=== PATIENT | female | born 1980 | race Caucasian/White ===

== ENCOUNTER 2018-11-13 21:29 | Outpatient (CLI) | payer OTHER ==
[~2018-11-13 21:29] MED LIST: IBU800 M1 PO; MOTRIN 600600 MG/TAB PO; MOTRIN 800800 MG/TAB PO; PERCOCET 325 MG1 TA2 PO; PRENATAL1 TA1
--- NOTE | 2018-11-13 21:40 | NUR ---
PT ARRIVED TO UNIT WITH COMPLAINTS OF LEFT SIDED HIP AND BACK PAIN, N/V. ORIENTED TO ROOM, CHANGED INTO GOWN, VS OBTAINED, SVE PERFORMED, EFMX2 APPLIED.
[2018-11-13 22:30] VITALS: BP 128/70; PULSE 106; TEMP 98.6
--- NOTE | 2018-11-14 00:04 | NUR ---
0000- DR. ZAVALA NOTIFIED OF LAB RESULTS, REASSURING FHT, IRREGULAR CONTRACTIONS BUT PT HAS BEEN SLEEPING THROUGH THESE CONTRACTIONS, STATES NAUSEA HAS IMPROVED FOLLOWING [facility], HIP AND BACK PAIN ALSO IMPROVED. DISCHARGE ORDER RECEIVED. DR. ZAVALA TO CALL PRESCRIPTION IN TO PT'S RX FOR MACROBID 100MG BID, GIVE FIRST DOSE PRIOR TO DISCHARGE. HAVE CULTURE ADDED TO URINE SAMPLE PER . 0004- MONITORING DC'D. PT TO CHANGE INTO STREET CLOTHES, QUESTIONS ENCOURAGED AND ANSWERED. 0040- 100MG MACROBID GIVEN PO. 0045- DISCHARGE INSTRUCTIONS REVIEWED WITH PT AND SPOUSE. WILL TOUR DRIVER PRESCRIPTION FOR MACROBID 100MG BID. LEFT THE UNIT AMBULATORY WITH SPOUSE FOR HOME.
[2018-11-14 13:25] LABS: COLLECTION METHOD CLEAN CATCH; MUCOUS Present /lpf; PH 6 (5-8); URINE APPEARANCE Cloudy; URINE BACTERIA Rare /hpf; URINE BILIRUBIN Negative (NEGATIVE); URINE BLOOD 2+ (NEGATIVE); URINE COLOR Yellow; URINE GLUCOSE Negative (NEGATIVE); URINE KETONE 2+ (NEGATIVE); URINE LEUKOCYTE ESTERASE 3+ (NEGATIVE); URINE NITRATE Negative (NEGATIVE); URINE PROTEIN(semi-quant) 1+ (NEGATIVE); URINE UROBILINOGEN Negative (NEGATIVE)
[2018-11-15] MEDS ORDERED: MACRODANTIN100 PO (22:49)
[2018-11-15] MEDS ORDERED: AZO-STANDARD95 MG PO (22:50)
== END 2018-11-14 00:45 | disposition home or self-care (01) ==
LOC: LDRO 21:29
PROVIDERS: Obstetrics & Gynecology
DX: O99.89 Other specified diseases and conditions complicating pregnancy, childbirth and the puerperium (principal); M25.552 Pain in left hip; M54.9 Dorsalgia, unspecified; R11.2 Nausea with vomiting, unspecified; R42 Dizziness and giddiness; Z3A.34 34 weeks gestation of pregnancy

== ENCOUNTER 2018-11-15 22:32 | Inpatient (IN) | payer OTHER ==
[~2018-11-15] VITALS: Ht 10.2 cm; Wt 87.7 kg
[2018-11-15] MEDS ORDERED: MACRODANTIN100 PO (22:49)
[2018-11-15] MEDS ORDERED: AZO-STANDARD95 MG PO (22:50)
[2018-11-15 23:16] LABS: COLLECTION METHOD CLEAN CATCH
[2018-11-15 23:21] LABS: HEMOGLOBIN 11.5 g/dl (12.5-16.0); MEAN CELL VOLUME 89 fl (80.0-100.0); MEAN CORPUSCULAR HEMOGLOBIN 30 pg (27.0-31.0); MEAN CORPUSCULAR HGB CONC 34 g/dl (33.0-37.0); MEAN PLATELET VOLUME 10.4 fl (7.4-10.4); PLATELET COUNT 111 K/mm3 (130-400); RED BLOOD COUNT 3.83 M/mm3 (4.10-5.30); REDCELL DISTRIBUTION WIDTH-CV 13.1 % (11.5-14.5)
[2018-11-15 23:25] LABS: HEMATOCRIT 34.2 % (37.0-47.0)
--- NOTE | 2018-11-15 23:30 | NUR ---
THIS NURSE IN ROOM AT 2305. ER STAFF STARTING IV. FM STARTED AT 2312 AND DC'D AT 2330. FHT REACTIVE, NO CONTRACTIONS NOTED.
[2018-11-15 23:31] LABS: ALBUMIN 3.2 gm/dL (3.5-5.0); BILIRUBIN,TOTAL 0.8 mg/dL (0.0-1.0); CALCIUM 9.9 mg/dL (8.4-10.2); CREATININE, serum 0.85 (0.52-1.25); POTASSIUM 3.8 mmol/L (3.4-5.0); TOTAL PROTEIN 6.6 gm/dL (6.4-8.2)
[2018-11-15 23:35] LABS: AMORPHOUS CRYSTAL Present /uL; MUCOUS Present /lpf; PH 6 (5-8); URINE APPEARANCE Cloudy; URINE BACTERIA Many /hpf; URINE BILIRUBIN Negative (NEGATIVE); URINE BLOOD 3+ (NEGATIVE); URINE COLOR Amber; URINE GLUCOSE Negative (NEGATIVE); URINE KETONE 1+ (NEGATIVE); URINE LEUKOCYTE ESTERASE 2+ (NEGATIVE); URINE NITRATE Positive (NEGATIVE); URINE PROTEIN(semi-quant) 2+ (NEGATIVE); URINE UROBILINOGEN >=4.0 mg/dL (NEGATIVE)
[2018-11-15 23:58] LABS: BAND 40 % (0-10); LYMPHOCYTE 2 % (20.0-51.0); NEUTROPHILS 56 % (42.0-75.2)
[2018-11-15 23:59] LABS: PLATELET ESTIMATE DECREASED (NORMAL)
[2018-11-16] VITALS (9 sets, daily range): BP systolic 101–131; BP diastolic 47–99; PULSE 105–127; TEMP 98.3–100.3
[2018-11-16 00:06] LABS: DOHLE BODIES PRESENT; TOXIC GRANULATION PRESENT
[2018-11-16 00:07] LABS: HYPOCHROMIA 1+
--- NOTE | 2018-11-16 05:00 | NUR ---
0500 C/O BACK PAIN. TYLENOL 325 AND PERCOCET 1 PO GIVEN FOR PAIN. WARM BLANKET TO BACK. TRYING TO REST.
[2018-11-16 08:00] LABS: HEMOGLOBIN 10.1 g/dl (12.5-16.0); MEAN CELL VOLUME 91 fl (80.0-100.0); MEAN CORPUSCULAR HEMOGLOBIN 30 pg (27.0-31.0); MEAN CORPUSCULAR HGB CONC 33 g/dl (33.0-37.0); PLATELET COUNT 93 K/mm3 (130-400); RED BLOOD COUNT 3.35 M/mm3 (4.10-5.30); REDCELL DISTRIBUTION WIDTH-CV 13.3 % (11.5-14.5)
[2018-11-16 08:02] LABS: HEMATOCRIT 30.5 % (37.0-47.0)
[2018-11-16] MEDS ORDERED: AMOXICILLIN/CLA1 TA1 PO (09:02)
[2018-11-16] MEDS ORDERED: PERCOCET 325 MG1 TA2 PO (09:02)
[2018-11-16 09:50] LABS: BAND 27 % (0-10); DOHLE BODIES PRESENT; EOSINOPHIL 1 % (0-4); LYMPHOCYTE 9 % (20.0-51.0); NEUTROPHILS 62 % (42.0-75.2); PLATELET ESTIMATE DECREASED (NORMAL); POLYCHROMASIA 1+
--- NOTE | 2018-11-16 15:47 | NUR ---
RN at bedside. O2 applied via nasal cannulla at 2L. SPO2 noted at 94%. 1549-O2 increased to 2L. SPO2 noted 96%
--- NOTE | 2018-11-16 17:00 | NUR ---
RN at bedside. SPO2 100%. Pt taken off O2. SPO2 remains 98-100%. Pt remains on RA.
[2018-11-17] VITALS (8 sets, daily range): BP systolic 103–123; BP diastolic 52–81; PULSE 91–121; TEMP 97.7–100.8
--- NOTE | 2018-11-17 09:10 | NUR ---
2408-9877 FHR baseline 110 bpm with moderate variability and accelerations, no decelerations noted. 4879-7333 FHR baseline 100 bpm with moderate variability and accelerations, no decelerations noted. O2 sat placed on patient and maternal HR 90-100 bpm and is not the same as FHR. 0910 Dr. Villalobos on unit, reviews FHR tracing, orders to continue FHR monitoring.
--- NOTE | 2018-11-17 10:15 | NUR ---
FHR 110 bpm with moderate variability and accelerations, no decelerations noted. Dr. Villalobos at bedside, reviews FHR tracing, orders to discontinue FHR monitoring and continue monitoring FHR q shift as ordered.
[2018-11-17 11:09] LABS: HEMATOCRIT 38.4 % (37.0-47.0); MEAN CELL VOLUME 89 fl (80.0-100.0); MEAN CORPUSCULAR HEMOGLOBIN 30 pg (27.0-31.0); MEAN CORPUSCULAR HGB CONC 34 g/dl (33.0-37.0); MEAN PLATELET VOLUME 10.6 fl (7.4-10.4); PLATELET COUNT 141 K/mm3 (130-400); REDCELL DISTRIBUTION WIDTH-CV 13.3 % (11.5-14.5)
[2018-11-17 11:15] LABS: HEMOGLOBIN 12.9 g/dl (12.5-16.0)
--- NOTE | 2018-11-17 12:25 | NUR ---
Chaplain arroyo and offered support with patient.
--- NOTE | 2018-11-17 18:00 | NUR ---
Patient c/o seeing "black and white dots and black squiggly lines" in and above her field of vision. She states that this usually happens before an MS episode. She states that she has previously preferred lifestyle changes to medication for treatment of her MS. Dr. Villalobos notified of visual changes, no new orders.
--- NOTE | 2018-11-17 21:15 | NUR ---
Pt reports "I still have a headache but I'll wait to take percocet until I've had a shower and am ready for bed"
[2018-11-18 03:00] VITALS: BP 107/56; PULSE 82; TEMP 98.4
[2018-11-18 08:45] VITALS: BP 113/77; PULSE 105; TEMP 98.3
[2018-11-18] MEDS ORDERED: AMOXICILLIN/CLA1 TA1 PO (09:00)
[2018-11-18] MEDS ORDERED: BACTRIM 400 MG-1 TAB PO (09:00)
[2018-11-18 12:30] VITALS: BP 121/73; PULSE 100; TEMP 98.2
== END 2018-11-18 16:20 | disposition home or self-care (01) | DRG 833 ==
LOC: COL.ER 22:32 → OB 11-16 00:38
PROVIDERS: Emergency Medicine; Obstetrics & Gynecology; ADMIT Obstetrics & Gynecology
DX: O23.43 Unspecified infection of urinary tract in pregnancy, third trimester (principal); E86.0 Dehydration; O99.283 Endocrine, nutritional and metabolic diseases complicating pregnancy, third trimester; O23.03 Infections of kidney in pregnancy, third trimester; Z3A.34 34 weeks gestation of pregnancy
CPT/HCPCS: A4216; J0696; J2405; J3010; J7030; J7120

== ENCOUNTER 2018-12-17 19:38 | Outpatient (CLI) | payer OTHER ==
[~2018-12-17] VITALS: Ht 165.1 cm; Wt 86.4 kg
--- NOTE | 2018-12-17 19:30 | NUR ---
1929- Pt arrived on unit with complaints of contractions on and off all day. Pt was escorted by her and staff to LR 6. Pt denies any leaking of fluid, vaginal bleeding and reports normal movement. EFM and toco monitors placed. Vital signs WNL. SVE by this RN . 1939- Dr. Martinez on the unit. FHR tracing, ctx pattern and SVE reviewed. Orders for labor assessment received.
[~2018-12-17 19:38] MED LIST changes: +AMOXICILLIN/CLA1 TA1 PO; +AZO-STANDARD95 MG PO; +BACTRIM 400 MG-1 TAB PO; +MACRODANTIN100 PO
[2018-12-17 20:00] VITALS: BP 126/66; PULSE 85
--- NOTE | 2018-12-17 20:45 | NUR ---
2044- SVE by this RN with no change. Information reviewed with Dr. Martinez. Orders for discharge home received. 2099- Discharge instructions reviewed with pt and at the bedside. Both verbalized an understanding, agreed with the plan and states no questions or concerns at this time. 2114- Pt discharged home.
== END 2018-12-17 21:15 | disposition home or self-care (01) ==
LOC: LDRO 19:38 → LDR 20:14 → LDRO 21:15 → LDR 21:15
DX: O09.523 Supervision of elderly multigravida, third trimester (principal); Z3A.39 39 weeks gestation of pregnancy
CPT/HCPCS: OP

== ENCOUNTER 2018-12-18 17:42 | Inpatient (IN) | payer OTHER ==
[~2018-12-18] VITALS: Ht 165.1 cm; Wt 87.3 kg
[2018-12-18] VITALS (10 sets, daily range): BP systolic 127–154; BP diastolic 60–82; PULSE 77–106; TEMP 98.1–98.6
--- NOTE | 2018-12-18 17:50 | NUR ---
Patient ambulatory onto unit with and sleeper cutter at side for labor check. Patient reports painful contractions since 1400 today. Reports good movement, denies leaking of fluid or vaginal bleeding. , 39.2. GBS-. . EFMs on, VS taken. SVE per Kar LEIJA. notified, orders received. INT started in left forearm at 1805. Admission assessment completed. Consents signed.
--- NOTE | 2018-12-18 18:15 | NUR ---
Report to Piyush RN to assume care of patient at this time.
--- NOTE | 2018-12-18 18:40 | NUR ---
4064-0195 Pt kneeling on floor leaning over birthing ball. Tracing maternal HR at this time verified by palpitation. RN at bedside adjusting monitor.
[2018-12-18 18:44] LABS: BASO % 0.2 % (0.0-2.0); EOS # 0.1 (0.0-0.7); EOS % 0.5 % (0-4.0); GRAN # 8.4 (1.4-6.5); GRAN % 76.4 % (42.2-75.2); HEMOGLOBIN 12.2 g/dl (12.5-16.0); LYMPH # 1.9 (1.2-3.4); LYMPH % 17.7 % (20.0-51.0); MEAN CELL VOLUME 89 fl (80.0-100.0); MEAN CORPUSCULAR HEMOGLOBIN 30 pg (27.0-31.0); MEAN CORPUSCULAR HGB CONC 34 g/dl (33.0-37.0); MEAN PLATELET VOLUME 10.3 fl (7.4-10.4); MONO # 0.5 (0.1-0.6); MONO % 4.7 % (1.7-9.3); PLATELET COUNT 207 K/mm3 (130-400); RED BLOOD COUNT 4.03 M/mm3 (4.10-5.30); REDCELL DISTRIBUTION WIDTH-CV 13.9 % (11.5-14.5)
[2018-12-18 18:45] LABS: HEMATOCRIT 35.7 % (37.0-47.0)
--- NOTE | 2018-12-18 19:00 | NUR ---
Monitors removed, pt up to bathroom to void. 1845 - 1900 Pt on knees leaning over birthing ball, difficulty tracing FHR due to maternal position. Maternal HR tracing verified by palpitation. RN adjusting US.
--- NOTE | 2018-12-18 19:15 | NUR ---
3449-7036 Pt kneeling and leaning over birthing ball. Difficulty tracing FHR due to maternal positioning. Maternal HR tracing verified by palpitation. RN adjusting monitor.
--- NOTE | 2018-12-18 20:00 | NUR ---
3003-9830 Pt sitting up in bed. Tracing maternal HR, verified by palpitation. Dr. Alba at bedside checking on patient, continue plan of care.
--- NOTE | 2018-12-18 20:10 | NUR ---
2010 - Nissa comes to nurses station and states patient is feeling much more pressure. Dr. Alba to bedside. 2015 - Pt positioned to kneeling and leaning over elevated head of bed for comfort. Dr. Alba gowned and gloved.
--- NOTE | 2018-12-18 20:30 | NUR ---
Pt reports feeling a lot of pressure but not an urge to push. Discussed performing AROM with patient and spouse, both agreeable at this time. AROM performed by Dr. Alba, small amount of clear/yellow fluid returned. SVE 9/100/0. Pt breathing through contractions well.
--- NOTE | 2018-12-18 21:00 | NUR ---
2935-8023 Maternal HR tracing frequently due to maternal positioning. RN handholding monitors intermittently to obtain FHR. Pt complaining of strong pain in her legs, repositioned to footplates for comfort. Pt breathing and coping well through contractions.
--- NOTE | 2018-12-18 21:13 | NUR ---
2099 - Nursery at bedside. SVE /+[address] Alba. Recommended to patient to push with contractions to help pain in her legs. RN handholding US intermittently to obtain FHR. Difficulty tracing continously due to maternal position and maternal comfort. 2112 - Spontaneous vaginal delivery of boy. Delayed cord clamping per parents request. Cord clamped by Dr. Alba after pulsating had stopped. Cord cut by FOB. then placed on mothers abdomen. Care of assumed to Nursery RN, Cassy Cruz. 2122 - Spontaneous delivery of intact placenta. Perineum intact per Dr. Alba. Fundal massage started by this RN, fundus firm and down 1 from umbilicus. No pitocin per patients request, ok'd by Dr. Alba. Recommended to patient to breastfeed infant soon after delivery. 2129 - Pericare provided. New chux beneath patient. Ice pack to perineum. Pt repositioned in bed. recovery started.
--- NOTE | 2018-12-18 23:30 | NUR ---
Pt able to ambulate to bathroom with standby assistance. Unable to void at this time. Pericare explained and provided. New gown on. Mesh panties and pad applied. Pt educated on need to measure 3 voids. Pt transferred to room 214 by wheelchair.
--- NOTE | 2018-12-18 23:40 | NUR ---
at 40 weeks and 1 day arrives to unit with complaint of leakage of fluid. Pt reports large gush of clear fluid around 2215 tonight. Pt reports feeling some mild contractions about every 10 minutes apart. Pt denies vaginal bleeding and feels good movement. Pt denies headaches, blurry vision, or RUQ pain. Pt oriented to room, call light within reach, bed in low and locked position. EFM and toco explained and applied. AMNITRACE POSITIVE. SVE -2/-3. Dr. Villalobos notified, see physician notification.
--- NOTE | 2018-12-19 00:15 | NUR ---
18 gauge IV started in right forearm after 1 attempt. Admission labs obtained off of IV start. Lactated Ringers infusing to gravity. Consents reviewed and signed with patient and spouse. Pt educated on plan of care.
[2018-12-19 00:40] VITALS: BP 137/71; PULSE 90; TEMP 98.5
--- NOTE | 2018-12-19 02:35 | NUR ---
0200 - Pt requesting epidural. Trev Cisse CRNA notified. 0230 - BRAYAN Steele at bedside. Pt repositioned to sitting on edge of bed. Epidural procedure, risks, and benefits explained to patient, pt verbalized understanding. 0235 - Single shot by BRAYAN Steele, pt denies any adverse reactions. 0242 - Pt repositioned to wedge left. Safety precautions reviewed with patient and spouse. Plan of care reviewed. See Anesthesia record.
--- NOTE | 2018-12-19 03:22 | NUR ---
Martinez catheter placed to dependent drainage. Clear, yellow urine returned. Catheter secured to leg with statlock. SVE /-2. Peanut ball placed.
[2018-12-19 04:30] VITALS: BP 115/63; PULSE 85; TEMP 98.3
[2018-12-19 08:20] VITALS: BP 110/52; PULSE 78; TEMP 98.3
--- NOTE | 2018-12-19 09:54 | NUR ---
Initial visit; Parents thanked Highway Inspector for offering congratulations and God's blessings for the of their son. Highway Inspector thanked family for choosing [facility].
[2018-12-19 16:25] VITALS: BP 112/57; PULSE 88; TEMP 98
[2018-12-19 19:55] VITALS: BP 128/67; PULSE 80; TEMP 97.9
[2018-12-20] MEDS ORDERED: MOTRIN 800800 MG/TAB PO (07:05)
[2018-12-20] MEDS ORDERED: PERCOCET 325 MG1 TA2 PO (07:06)
[2018-12-20 08:00] VITALS: BP 125/65; PULSE 87; TEMP 97.7
== END 2018-12-20 15:00 | disposition home or self-care (01) | DRG 807 ==
LOC: LDRO 17:42 → LDR 17:50 → OB 17:50
PROVIDERS: ADMIT Obstetrics & Gynecology
PROC: 10E0XZZ Delivery of Products of Conception, External Approach (ICD-10-PCS; principal; 2018-12-18)
DX: O34.211 Maternal care for low transverse scar from previous cesarean delivery (principal); Z37.0 Single live birth; Z3A.39 39 weeks gestation of pregnancy

== ENCOUNTER 2020-05-17 18:15 | Observation (INO) | payer OTHER ==
[2020-05-17 19:39] LABS: ALBUMIN 4.4 gm/dL (3.5-5.0); BILIRUBIN,TOTAL 0.2 mg/dL (0.0-1.0); CALCIUM 9.5 mg/dL (8.4-10.2); CREATININE, serum 0.66 (0.52-1.25); TOTAL PROTEIN 7.4 gm/dL (6.4-8.2)
--- NOTE | 2020-05-17 20:45 | NUR ---
Pt transferred into OR from ED cart by this RN. Pt able to move self onto OR table. Trev Cisse CRNA and network control technician in OR. Pt positioned into lithotomy. Dr. Stevens to OR, scrub done by Dr. Stevens. See operative notes.
[2020-05-17 20:53] LABS: BASO % 0.3 % (0.0-2.0); EOS # 0.1 (0.0-0.7); EOS % 0.9 % (0-4.0); GRAN # 10.9 (1.4-6.5); HEMOGLOBIN 12.4 g/dl (12.5-16.0); LYMPH # 2.1 (1.2-3.4); LYMPH % 15.2 % (20.0-51.0); MEAN CELL VOLUME 88 fl (80.0-100.0); MEAN CORPUSCULAR HEMOGLOBIN 30 pg (27.0-31.0); MEAN CORPUSCULAR HGB CONC 34 g/dl (33.0-37.0); MEAN PLATELET VOLUME 9.9 fl (7.4-10.4); MONO # 0.6 (0.1-0.6); MONO % 4.2 % (1.7-9.3); PLATELET COUNT 237 K/mm3 (130-400); REDCELL DISTRIBUTION WIDTH-CV 12.3 % (11.5-14.5)
[2020-05-17 20:55] LABS: HEMATOCRIT 36.8 % (37.0-47.0)
--- NOTE | 2020-05-17 21:22 | NUR ---
Pt transferred to room 221 by bed with belongings. Pt set up for frequent vital signs. Educated on safety. Call light within reach, bed in low and locked position. Peripad applied. Plan of care reviewed with patient.
[2020-05-17 21:30] VITALS: BP 98/61; PULSE 82; TEMP 98.5
[2020-05-17 21:45] VITALS: BP 121/59; PULSE 79
[2020-05-17 22:00] VITALS: BP 91/42; PULSE 71
[2020-05-17 22:15] VITALS: BP 105/49; PULSE 67
[2020-05-17 22:30] VITALS: BP 114/65; PULSE 68
[2020-05-17 23:30] VITALS: BP 116/62; PULSE 82
[2020-05-18 04:15] VITALS: BP 96/44; PULSE 82; TEMP 98.7
[2020-05-18 07:04] LABS: BASO % 0.3 % (0.0-2.0); EOS # 0.1 (0.0-0.7); EOS % 1.4 % (0-4.0); GRAN % 63.6 % (42.2-75.2); HEMATOCRIT 30.7 % (37.0-47.0); HEMOGLOBIN 10.6 g/dl (12.5-16.0); LYMPH # 1.8 (1.2-3.4); LYMPH % 28.3 % (20.0-51.0); MEAN CELL VOLUME 89 fl (80.0-100.0); MEAN CORPUSCULAR HEMOGLOBIN 31 pg (27.0-31.0); MEAN CORPUSCULAR HGB CONC 35 g/dl (33.0-37.0); MONO # 0.4 (0.1-0.6); MONO % 6.1 % (1.7-9.3); PLATELET COUNT 184 K/mm3 (130-400); RED BLOOD COUNT 3.47 M/mm3 (4.10-5.30); REDCELL DISTRIBUTION WIDTH-CV 12.5 % (11.5-14.5)
[2020-05-18 08:37] VITALS: BP 110/54; PULSE 88; TEMP 97.5
[2020-05-18] MEDS ORDERED: MOTRIN 600600 MG/TAB PO (08:47)
--- NOTE | 2020-05-18 09:12 | NUR ---
Initial visit; Patient thanked Special Education Bus Driver for looking in on her, offering God's blessings and keeping her in Special Education Bus Driver's prayers.
== END 2020-05-18 14:15 | disposition home or self-care (01) ==
LOC: COL.ER 18:15 → OB 21:13
PROVIDERS: Emergency Medicine; ADMIT Obstetrics & Gynecology
DX: O03.4 Incomplete spontaneous abortion without complication (principal); G35 Multiple sclerosis; I10 Essential (primary) hypertension
CPT/HCPCS: G0378; J0690; J2210; J2405; J2704; J3010; J7030

== ENCOUNTER → 2021-06-16 | Outpatient (CLI) | payer OTHER | LOC: DIA.ED 09:47 | DX: O24.419 Gestational diabetes mellitus in pregnancy, unspecified control (principal) | CPT/HCPCS: G0108 ==

== ENCOUNTER 2021-08-18 06:59 | Inpatient (IN) | payer OTHER ==
[~2021-08-18] VITALS: Ht 165.1 cm; Wt 87.3 kg
[2021-08-18] VITALS (28 sets, daily range): BP systolic 100–163; BP diastolic 48–89; PULSE 65–114; TEMP 97–98.7
[~2021-08-18 06:59] MED LIST changes: +PROBIOTIC ACID1 EAC3 PO; +VITAMIN B COMPL1 SGL PO; +VITAMIN C500 MG; +VITAMIN D31000 IU PO
--- NOTE | 2021-08-18 07:00 | NUR ---
0700-[id number] 40.[address] Rivera ambulatory to LR 4 with complaint of contractions since 0. Denies LOF. Reports good FM. Placed on EFM. SVE /-2 intact [address]IO Rivera[address] Dr. Alba notified. Patient requests epidural. BRAYAN Steele requested. 0715-IV to left forearm. Blood collected and sent to lab per order. LR infusing IVF bolus. Consents reviewed and signed. 07-Cedric OTOLARYNGOLOGY TEACHER to room. 0722-Test dose administered by BRAYAN Steele patient tolerated well. Repositioned WL. 0810-Martinez to DD. Clear yellow urine returned. SVE /-2 buldging bag. 0815-Dr. Alba to room. Updated on SVE. discussed plan of care. 0820-AROM by , [facility] stained fluid. Repositioned WR with peanut ball.
[2021-08-18] MEDS ORDERED: MAGNESIUM200 MG PO (07:49)
[2021-08-18 07:53] LABS: BASO % 0.1 % (0.0-2.0); EOS # 0.1 K/mm3 (0.0-0.7); EOS % 0.6 % (0.0-4.0); GRAN # 8.1 K/mm3 (1.4-6.5); GRAN % 79.4 % (42.2-75.2); HEMOGLOBIN 12.5 g/dl (12.5-16.0); LYMPH # 1.5 K/mm3 (1.2-3.4); LYMPH % 14.4 % (20.0-51.0); MEAN CELL VOLUME 85 fl (80.0-100.0); MEAN CORPUSCULAR HEMOGLOBIN 29 pg (27-31); MEAN CORPUSCULAR HGB CONC 34 g/dl (33.0-37.0); MEAN PLATELET VOLUME 10.9 fl (7.4-10.4); MONO # 0.5 K/mm3 (0.1-0.6); MONO % 5.1 % (1.7-9.3); PLATELET COUNT 159 K/mm3 (130-400); RED BLOOD COUNT 4.33 M/mm3 (4.10-5.30); REDCELL DISTRIBUTION WIDTH-CV 14.7 % (11.5-14.5)
[2021-08-18 08:01] LABS: HEMATOCRIT 36.7 % (37.0-47.0)
--- NOTE | 2021-08-18 10:45 | NUR ---
BRAYAN Steele notified of patients request for increased epidural dose. Bogdan-BRAYAN Steele to patient room dosing epidural.
--- NOTE | 2021-08-18 11:10 | NUR ---
1110-Dr. Alba on unit. MD begins practice pushing with patient. 1115-MD gives order to set up for delivery. 1120-Martinez discontinued. Paitent continues pushing with Dr. Alba. Moves vertex well. 1130-Variable decel in FHR following pushing efforts with slow return to baseline. 1135-Spontaneous delivery of head, patient continues with pushing efforts and body follows immediately. Viable male bulb suctioned by MD and cord clamped x 2 and cut by FOB. Infant to mothers abdomen. Care of infant assumed by HELADIO Mandel Apgars 8/9/9. 1141-Spontaneous delivery of intact placenta by . Fundal massage firm. Lochia WNL. Perineum intact. Migdalia care provided. Updated on plan of care and safety.
--- NOTE | 2021-08-18 15:00 | NUR ---
1500-Patient attempted void on bedpan. Unable to void at this time. Fundus at umbilicus and firm. Lochia WNL. BLE remain unable to lift and hold at this time after epidural.
--- NOTE | 2021-08-18 18:39 | NUR ---
REPORT RECEIVED. PLAN OF CARE REVIEWED. PATIENT CURRENTLY INFANT.
--- NOTE | 2021-08-18 20:15 | NUR ---
PATIENT ABLE TO LIFT LEGS OFF BED FOR 5+ SECONDS. PT ASSISTED WITH WALKING TO BATHROOM. CLEAN MESH UNDERWEAR PROVIDED ALONG WITH CLEAN PAD AND ICE PACK. HALF-DOLLAR SIZED CLOT NOTED. FUNDUS FIRM. PATIENT ABLE TO VOID INTO HAT WITHOUT DIFFICULTY. ISAIAH-CARE PROVIDED. PATIENT ABLE TO WALK FROM LABOR ROOM TO ROOM WITH IN CRIB. PATIENT ORIENTED TO ROOM. PLAN OF CARE REVIEWED AND WHITEBOARD UPDATED.
--- NOTE | 2021-08-18 21:44 | NUR ---
FUNDUS AND BLEEDING CHECKED DUE TO HALF-DOLLAR SIZED CLOT NOTED ON PREVIOUS ASSESSMENT. FUNDUS IS FIRM. NO CLOTS ARE NOTED AT THIS TIME. LOCHIA IS SMALL AMOUNT.
[2021-08-19 05:30] VITALS: BP 116/58; PULSE 99; TEMP 97.5
[2021-08-19] MEDS ORDERED: MOTRIN 800800 MG/TAB PO (08:05)
[2021-08-19] MEDS ORDERED: PERCOCET 325 MG1 TA2 PO (08:05)
[2021-08-19 08:30] VITALS: BP 92/65; PULSE 83; TEMP 97.6
--- NOTE | 2021-08-19 08:45 | NUR ---
Rests in bed, alert. Request pain medication. Percocet 5/325 mg one given per request and as ordered.
--- NOTE | 2021-08-19 09:25 | NUR ---
Initial visit; Mom thanked Supervisor Network Control Operators for offering congratulations and God's blessings for the of her son. Supervisor Network Control Operators thanked family for choosing our hospital.
--- NOTE | 2021-08-19 10:20 | NUR ---
Ibuprofen 800 mg given per request and as ordered.
[2021-08-19 17:30] VITALS: BP 113/68; PULSE 59; TEMP 97.6
[2021-08-19 21:00] VITALS: BP 96/50; PULSE 72; TEMP 97.8
[2021-08-20 08:30] VITALS: BP 124/55; PULSE 63; TEMP 98.1
== END 2021-08-20 16:05 | disposition home or self-care (01) | DRG 806 ==
LOC: LDRO 06:59 → OB 07:14 → LDR 07:14 → OB 20:15
PROVIDERS: ADMIT Obstetrics & Gynecology
PROC: 10E0XZZ Delivery of Products of Conception, External Approach (ICD-10-PCS; principal; 2021-08-18)
DX: O24.420 Gestational diabetes mellitus in childbirth, diet controlled (principal); O99.354 Diseases of the nervous system complicating childbirth; Z37.0 Single live birth; G35 Multiple sclerosis; O34.211 Maternal care for low transverse scar from previous cesarean delivery; O77.0 Labor and delivery complicated by meconium in amniotic fluid; Z3A.40 40 weeks gestation of pregnancy; Z86.16 Personal history of COVID-19
CPT/HCPCS: J2590; J7120